=== PATIENT | male | born 2000 | race Two or more races ===

== ENCOUNTER 2021-10-27 11:24 | Emergency (ER) | payer OTHER ==
[~2021-10-27] VITALS: Ht 172.7 cm; Wt 68.0 kg
== END 2021-10-27 15:30 | disposition home or self-care (01) ==
LOC: EMR PED 11:24 → ER 11:24 → EMR PED 12:51
DX: L02.412 Cutaneous abscess of left axilla (principal); J02.9 Acute pharyngitis, unspecified; R09.81 Nasal congestion; Z91.013 Allergy to seafood; Z20.822 Contact with and (suspected) exposure to COVID-19

== ENCOUNTER 2022-02-09 07:37 | Emergency (ER) | payer OTHER ==
[~2022-02-09] VITALS: Ht 172.7 cm; Wt 68.0 kg
== END 2022-02-09 11:40 | disposition home or self-care (01) ==
LOC: EMR PED 07:37 → ER 07:42 → EMR PED 07:42
DX: J03.90 Acute tonsillitis, unspecified (principal); Z20.822 Contact with and (suspected) exposure to COVID-19; Z91.013 Allergy to seafood